=== PATIENT | female | born 1985 | race Caucasian/White ===

== ENCOUNTER 2017-10-17 11:09 | Emergency (ER) | payer OTHER ==
[2017-10-17 11:15] VITALS: BP 120/76
--- NOTE | 2017-10-17 11:26 | ER Document Report ---
HPI - HPI Patient complains to provider of: Cut right hand Onset: This morning Onset/Duration: Sudden Pain Level: 3 Context: 32-year-old female cut dorsal right hand over the second MCP joint while washing a glass this morning tetanus is current. Associated Symptoms: None Exacerbated by: Movement Relieved by: Denies Similar symptoms previously: No Recently seen / treated by doctor: No - ROS ROS below otherwise negative: Yes Systems Reviewed and Negative: Yes All other systems reviewed and negative Past Medical History - General Information source: Patient - Social History Smoking Status: Never Smoker Frequency of alcohol use: None Drug Abuse: None Occupation: Starts new [employer] job tomorrow Lives with: Family Family History: Reviewed & Not Pertinent - Medical History Medical History: Negative Surgical Hx: Negative Vertical Provider Document - CONSTITUTIONAL Agree With Documented VS: Yes Exam Limitations: No Limitations General Appearance: No Apparent Distress - INFECTION CONTROL TRAVEL OUTSIDE OF THE [place] IN LAST 30 DAYS: No - MUSCULOSKELETAL/EXTREMETIES Musculoskeletal/Extremeties: MAEW, FROM, Tender - 6 mm round avulsion of skin superficial over the dorsal second MCP joint right hand - NEURO Level of Consciousness: Alert - DERM Integumentary: Laceration - avulsion Course - Vital Signs Vital signs: Temp Pulse Resp BP Pulse Ox 98.1 F 67 16 120/76 99 10/17/17 11:14 10/17/17 11:14 10/17/17 11:14 10/17/17 11:14 10/17/17 11:14 Discharge - Discharge Clinical Impression: Skin avulsion right hand Condition: Good Disposition: HOME, SELF-CARE Instructions: Antibiotic Ointment Protection ([facility]), Avulsion Injury ([facility]), Acetaminophen, Ibuprofen (General) ([facility]) Additional Instructions: Keep clean soap and water daily Bacitracin Telfa Coban wrap Return to the emergency room any signs of infection Tylenol and Motrin for discomfort
== END 2017-10-17 11:51 | disposition home or self-care (01) ==
LOC: ER 11:09
DX: S61.411A Laceration without foreign body of right hand, initial encounter (principal); W25.XXXA Contact with sharp glass, initial encounter
CPT/HCPCS: 99282

== ENCOUNTER 2017-10-24 08:08 | Emergency (ER) | payer SELFPAY ==
[2017-10-24] MEDS ORDERED: POLYMYXIN B SULFATE/TMP OPH SOLN (10 ML/ER DISP) OD PRN (10:20)
--- NOTE | 2017-10-24 10:30 | ER Document Report ---
ED General - General Chief Complaint: Drainage from Eye Stated Complaint: EYE PAIN Time Seen by Provider: 10/24/17 09:10 TRAVEL OUTSIDE OF THE [place] IN LAST 30 DAYS: No - HPI Patient complains to provider of: Left eye drainage and pain Notes: Patient coming in for left eye drainage pain. Patient states ongoing for the last 24-48 hours. 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 Patient states cough cold runny nose over the last few days. Patient states normally takes allergy medication however is not taking the last few weeks. - Related Data Allergies/Adverse Reactions: No Known Allergies Allergy (Verified 10/17/17 11:11) Past Medical History - Social History Smoking Status: Unknown if Ever Smoked Family History: Reviewed & Not Pertinent Renal/ Medical History: Denies: Hx Peritoneal Dialysis Past Surgical History: Reports: Hx Oral Surgery, Hx Tonsillectomy Review of Systems - Review of Systems Constitutional: No symptoms reported EENT: No symptoms reported Cardiovascular: No symptoms reported Respiratory: No symptoms reported Gastrointestinal: No symptoms reported Genitourinary: No symptoms reported Female Genitourinary: No symptoms reported Musculoskeletal: No symptoms reported Skin: No symptoms reported Hematologic/Lymphatic: No symptoms reported Neurological/Psychological: No symptoms reported Physical Exam - Vital signs Vitals: Temp Pulse Resp BP Pulse Ox 98.4 F 75 16 122/78 98 10/24/17 08:11 10/24/17 08:11 10/24/17 08:11 10/24/17 08:11 10/24/17 08:11 Interpretation: Normal - General General appearance: Appears well, Alert - HEENT Head: Normocephalic, Atraumatic Eyes: Normal Conjunctiva: Injected, Purulent discharge Cornea: Normal. No: Corneal abrasion, Corneal ulcer, Dendrite, Flourescein stain uptake Pupils: PERRL - Respiratory Respiratory status: No respiratory distress Chest status: Nontender Breath sounds: Normal Chest palpation: Normal - Cardiovascular Rhythm: Regular Heart sounds: Normal auscultation Murmur: No - Abdominal Inspection: Normal Distension: No distension Bowel sounds: Normal Tenderness: Nontender Organomegaly: No organomegaly - Back Back: Normal, Nontender - Extremities General upper extremity: Normal inspection, Nontender, Normal color, Normal ROM , Normal temperature General lower extremity: Normal inspection, Nontender, Normal color, Normal ROM , Normal temperature, Normal weight bearing. No: Bryan's sign - Neurological Neuro grossly intact: Yes Cognition: Normal Orientation: AAOx4 Brennan Coma Scale Eye Opening: Spontaneous [place] Coma Scale Verbal: Oriented [place] Coma Scale Motor: Obeys Commands Brennan Coma Scale Total: 15 Speech: Normal Motor strength normal: LUE, RUE, LLE, RLE Sensory: Normal - Psychological Associated symptoms: Normal affect, Normal mood - Skin Skin Temperature: Warm Skin Moisture: Dry Skin Color: Normal Course - Re-evaluation Re-evalutation: 10/24/17 14:19 Symptoms are consistent with conjunctivitis no foreign bodies including lids. Mood forcing uptake. Patient was given Polytrim and discharged home. - Vital Signs Vital signs: Temp Pulse Resp BP Pulse Ox 97.6 F 79 16 110/71 98 10/24/17 10:37 10/24/17 10:37 10/24/17 10:37 10/24/17 10:37 10/24/17 10:37 Discharge - Discharge Clinical Impression: Conjunctivitis Qualifiers: Conjunctivitis type: acute Acute conjunctivitis type: unspecified Laterality: left Qualified Code(s): H10.32 - Unspecified acute conjunctivitis, left eye Condition: Good Disposition: HOME, SELF-CARE Instructions: Conjunctivitis ([facility]), Eyedrop Use ([facility]) Additional Instructions: Please use eyedrops given to you here in the ER as directed 2-4 drops in your left eye for the next 10 days 3 times a day. If you develop redness and drainage of the right eye he may use the same antibiotic drops with the same instructions. Please make sure to wash her hands regularly. Return to ER symptoms worsen follow-up with your primary care physician Forms: Return to Work
[2017-10-24 10:38] VITALS: BP 110/71
== END 2017-10-24 10:38 | disposition home or self-care (01) ==
LOC: ER 08:08
DX: H10.32 Unspecified acute conjunctivitis, left eye (principal); H57.12 Ocular pain, left eye; R05 Cough; R09.89 Other specified symptoms and signs involving the circulatory and respiratory systems
CPT/HCPCS: 99282; J3490